=== PATIENT | female | born 1960 | race American Indian/Alaskan Native ===

== ENCOUNTER 2019-08-03 10:41 | Emergency (ER) | payer BC ==
--- NOTE | 2019-08-03 11:27 | XRay Report ---
CHEST 2 VIEWS INDICATION / CLINICAL INFORMATION: SOB, cough, hx asthma. COMPARISON: 03/01/2013 FINDINGS: SUPPORT DEVICES: None. HEART / MEDIASTINUM: No significant abnormality. LUNGS / PLEURA: There is mild scarring in the lung bases. The upper lung zones are clear. No pneumoth orax is seen. . No focal infiltrate is seen ADDITIONAL FINDINGS: No significant additional findings. IMPRESSION: 1. No acute findings. Signer Name: Alejandro Patel MD Signed: 08/03/2019 11:23 AM Workstation Name: [id number]
[2019-08-03] MEDS ORDERED: ALBUTEROL 2.5 MG/3 ML NEBU IH ONE (13:05)
[2019-08-03] MEDS ORDERED: predniSONE 20 MG TAB PO ONE (13:05)
[2019-08-03] MEDS ORDERED: IPRATROPIUM 0.02% NEBU 2.5 ML IH ONE (13:05)
--- NOTE | 2019-08-03 13:22 | Emergency Department Report ---
HPI - General Chief Complaint: Upper Respiratory Infection Time Seen by Provider: 08/03/19 12:53 - HPI HPI: Room 38 The patient is a 58-year-old female presenting with a chief complaint of shortness of breath. The patient states for the past 2 weeks she's had shortness of breath and a cough productive of white sputum. Patient denies fever but admits to rhinorrhea. Patient denies sick contacts ED Past Medical Hx - Past Medical History Previous Medical History?: Yes Hx Asthma: Yes - Surgical History Past Surgical History?: No Additional Surgical History: Hysterectomy - Family History Family history: no significant - Social History Smoking Status: Never Smoker Substance Use Type: None (denies illicit drug use) - Medications Home Medications: Home Medications Medication Instructions Recorded Confirmed Last Taken Type ALBUTEROL Inhaler (OR & NICU) 2 puff IH QID PRN #8.5 gram 08/03/19 Unknown Rx [ProAir HFA Inhaler] Albuterol Sulfate [Albuterol 0.63% 0.63 mg IH TID PRN #90 ml 08/03/19 Unknown Rx NEBS] Azithromycin [Zithromax Z-RAÚL] 0 mg PO DAILY #6 tab 08/03/19 Unknown Rx Benzonatate [Tessalon Perles] 100 mg PO Q8HR #30 capsule 08/03/19 Unknown Rx Prednisone [predniSONE 10 mg 10 mg PO .TAPER #1 tab.ds.pk 08/03/19 Unknown Rx (6-Day Pack, 21 Tabs)] ED Review of Systems ROS: Stated complaint: ASTHMA/SOB Other details as noted in HPI Constitutional: denies: fever Eyes: denies: eye pain ENT: congestion Respiratory: cough, shortness of breath Cardiovascular: denies: chest pain Endocrine: no symptoms reported Gastrointestinal: denies: abdominal pain Genitourinary: denies: dysuria Musculoskeletal: denies: back pain Neurological: denies: headache Physical Exam - Physical Exam Vital Signs: Vital Signs 08/03/19 10:54 Temperature 98.2 F Pulse Rate 98 H Respiratory 18 Rate Blood Pressure 124/82 O2 Sat by Pulse 98 Oximetry Physical Exam: GENERAL: The patient is well-developed well-nourished female sitting in chair not appearing to be in acute distress HEENT: Normocephalic. Atraumatic. Extraocular motions are intact. Patient has moist mucous membranes. NECK: Supple. Trachea midline CHEST/LUNGS: Respiratory wheezes bilaterally. There is no respiratory distress noted. HEART/CARDIOVASCULAR: Regular. There is no tachycardia. There is no gallop rub or murmur. ABDOMEN: Patient has normal bowel sounds. There is no abdominal distention. SKIN: There is no rash. There is no edema. There is no diaphoresis. NEURO: The patient is awake, alert, and oriented. The patient is cooperative. The patient has normal speech MUSCULOSKELETAL: There is no evidence of acute injury. ED Course Vital Signs 08/03/19 10:54 Temperature 98.2 F Pulse Rate 98 H Respiratory 18 Rate Blood Pressure 124/82 O2 Sat by Pulse 98 Oximetry ED Medical Decision Making - Lab Data Laboratory Tests 08/03/19 13:38 Influenza A (Rapid) Negative Influenza B (Rapid) Negative - Radiology Data Radiology results: report reviewed (chest x-ray), image reviewed (chest x-ray) interpreted by me: Chest x-ray-no focal infiltrates, no pneumothorax [address] [address] XRay Report Signed Patient: GLENDA COTTON MR#: [id number] : 1960 Acct:[id number] Age/Sex: 58 / F ADM Date: 08/03/19 Loc: ED Attending Dr: Ordering Physician: ED MD SOCO Date of Service: 08/03/19 Procedure(s): XR chest routine 2V Accession Number(s): [id number] cc: ED MD SOCO Fluoro Time In Minutes: CHEST 2 VIEWS INDICATION / CLINICAL INFORMATION: SOB, cough, hx asthma. COMPARISON: 03/01/2013 FINDINGS: SUPPORT DEVICES: None. HEART / MEDIASTINUM: No significant abnormality. LUNGS / PLEURA: There is mild scarring in the lung bases. The upper lung zones are clear. No pneumothorax is seen. . No focal infiltrate is seen ADDITIONAL FINDINGS: No significant additional findings. IMPRESSION: 1. No acute findings. Signer Name: Alejandro Patel MD Signed: 08/03/2019 11:23 AM Workstation Name: [id number] Transcribed By: SS Dictated By: Alejandro Patel MD Electronically Authenticated By: Alejandro Patel MD Signed Date/Time: 08/03/19 1123 DD/ 1121 TD/TT: - Differential Diagnosis asthma exacerbation, URI, influenza, bronchitis Critical care attestation.: If time is entered above; I have spent that time in minutes in the direct care of this critically ill patient, excluding procedure time. ED Disposition Clinical Impression: Shortness of breath, Bronchitis, Asthma exacerbation Disposition: TO HOME OR SELFCARE Is pt being admited?: No Does the pt Need Aspirin: No Condition: Stable Instructions: Chronic Bronchitis (ED) Prescriptions: Albuterol Sulfate [Albuterol 0.63% NEBS] 0.63 mg IH TID PRN #90 ml PRN Reason: Wheezing Prednisone [predniSONE 10 mg (6-Day Pack, 21 Tabs)] 10 mg PO .TAPER #1 tab.ds.pk ALBUTEROL Inhaler (OR & NICU) [ProAir HFA Inhaler] 2 puff IH QID PRN #8.5 gram PRN Reason: Shortness Of Breath Benzonatate [Tessalon Perles] 100 mg PO Q8HR #30 capsule Azithromycin [Zithromax Z-RAÚL] 0 mg PO DAILY #6 tab Referrals: PRIMARY CARE,MD [Primary Care Provider] - 3-5 Days [facility] [Outside] - 3-5 Days Time of Disposition: 14:51
[2019-08-03 15:41] VITALS: BP 123/78
== END 2019-08-03 15:00 | disposition home or self-care (01) ==
LOC: ED 10:41
DX: J40 Bronchitis, not specified as acute or chronic (principal); Z90.710 Acquired absence of both cervix and uterus; Z79.899 Other long term (current) drug therapy
CPT/HCPCS: 71046; 87400; 94640; 99284; J7512